=== PATIENT | female | born 1990 | race Caucasian/White ===

== ENCOUNTER 2024-07-27 00:05 | Inpatient (IN) | payer OTHER ==
[2024-07-27] MEDS: OXYTOCIN 20 UNITS in 0.9% NS 20 UNIT/1,000 ML INFUS.BAG IV SCH (00:36)
[2024-07-27] MEDS ORDERED: ACETAMINOPHEN 325 MG TABLET (FP) PO PRN (01:01)
[2024-07-27] MEDS ORDERED: BISACODYL 10 MG SUPP.RECT RC PRN (01:01)
[2024-07-27] MEDS ORDERED: BENZOCAINE 28 GM HEMORRHOIDAL OINTMENT TP PRN (01:01)
[2024-07-27] MEDS ORDERED: WITCH HAZEL 50% (TUCKS) 40 PAD/JAR PAD TP PRN (01:01)
[2024-07-27] MEDS ORDERED: METHYLERGONOVINE MALEATE 0.2 MG/1 ML AMP IM PRN (01:01)
[2024-07-27] MEDS ORDERED: oxyCODONE HCL 5 MG TABLET PO PRN (01:01)
[2024-07-27] MEDS ORDERED: BENZOCAINE 20% 57 GM BOTTLE TP PRN (01:01)
[2024-07-27] MEDS ORDERED: IBUPROFEN 600 MG TABLET (FP) PO PRN (01:01)
[2024-07-27 01:37] VITALS: RESP 18; BMI 31.2
[2024-07-27 02:55] LABS: HEMATOCRIT 37.1 % (32.4-45.2); HEMOGLOBIN 12.2 GM/dL (10.7-15.3); MCH 25.9 pg (25.7-33.7); MCHC 32.9 g/dl (32.0-36.0); MEAN CELL VOLUME 78.7 fl (80-96); MEAN PLT VOLUME 9.8 fl (7.5-11.1); PLATELET COUNT 206 10^3/uL (134-434); RBC 4.72 M/mm3 (3.60-5.2); WHITE BLOOD COUNT 19.1 K/mm3 (4.0-10.0)
[2024-07-27 03:11] LABS: INR 0.95 (0.83-1.09); PROTHROMBIN TIME (PATIENT) 10.4 SEC (9.7-13.0)
[2024-07-27 03:13] LABS: ACTIVATED PTT 24.1 SECONDS (25.2-36.5); POTASSIUM 3.7 mmol/L (3.5-5.1)
[2024-07-27 03:15] LABS: CALCIUM 8.7 mg/dL (8.5-10.1)
[2024-07-27 03:19] LABS: CREATININE 0.8 mg/dL (0.55-1.3)
[2024-07-27 04:01] LABS: BLOOD UREA NITROGEN 11.3 mg/dL (7-18)
[2024-07-27 05:15] LABS: ANISOCYTOSIS 1+; MACROCYTOSIS 0
[2024-07-28 10:42] VITALS: BP 117/65; PULSE 80; TEMP 98.3
== END 2024-07-28 13:20 | disposition home or self-care (01) | DRG 807 ==
LOC: JLDR 00:05 → J3W 04:00
PROVIDERS: ADMIT Specialist; ATTEND Specialist
PROC: 10E0XZZ Delivery of Products of Conception, External Approach (ICD-10-PCS; principal; 2024-07-27)
PROC: 0HQ9XZZ Repair Perineum Skin, External Approach (ICD-10-PCS; 2024-07-27)
DX: O70.0 First degree perineal laceration during delivery (principal); Z37.0 Single live birth; Z3A.37 37 weeks gestation of pregnancy
CPT/HCPCS: 36415; 59409; 80048; 85025; 85610; 85730; 86780; 86850; 86900; 86901